=== PATIENT | female | born 1990 | race Caucasian/White ===

== ENCOUNTER 2017-11-04 15:01 | Emergency (ER) | payer MEDICAID ==
[~2017-11-04] VITALS: Ht 154.9 cm; Wt 89.8 kg
== END 2017-11-04 16:48 | disposition home or self-care (01) ==
LOC: ED 15:01
DX: F41.9 Anxiety disorder, unspecified (principal)
CPT/HCPCS: 80053; 81001; 83690; 84703; 85025; 96374; 99283; J2405

== ENCOUNTER 2024-11-06 12:29 | Emergency (ER) | payer OTHER ==
[~2024-11-06] VITALS: Ht 154.9 cm; Wt 92.1 kg
[2024-11-06 12:54] LABS: BLOOD/HGB, URINE MODERATE (Negative); KETONE, URINE NEGATIVE (Negative); LEUK ESTERASE, URINE NEGATIVE (negative); NITRITE, URINE NEGATIVE (negative)
[2024-11-06 13:01] LABS: BACTERIA, URINE RARE /hpf (negative); CASTS, URINE NONE SEEN \\lpf; CRYSTALS, URINE NONE SEEN (0-1+); EPITHELIAL CELLS, URINE SQUAMOUS 1+ /lpf (0-1+); REFLEX CULTURE, URINE No (No)
[2024-11-06 13:15] LABS: BASOPHILS 0.4 % (0.1-1.2); EOSINOPHILS 2.3 % (0.7-5.8); LYMPHOCYTES 30.0 % (19.3-51.7); MCH 27.7 PG (25.6-32.2); MCHC 33.6 g/dL (32.2-35.5); MCV 82.5 fL (79.4-94.8); MONOCYTES 6.1 % (4.7-12.5); NEUTROPHILS 60.9 % (34.0-71.1); RBC 4.80 M/uL (3.93-5.22)
[2024-11-06] MEDS ORDERED: KETOROLAC TROMETHAMINE 15 MG/ML VIAL IV ONE (13:15)
[2024-11-06 13:32] LABS: ALT (SGPT) 60.0 U/L (14-59); AST (SGOT) 26.0 U/L (15-37); GLOMERULAR FILTRATION RATE,EST 108.0 mL/min (>60); PROTEIN, TOTAL 7.1 g/dL (6.4-8.2); UREA NITROGEN 8.0 mg/dL (7-18)
[2024-11-06] MEDS ORDERED: HYDROCODON-ACE1 EA10 PO (13:57)
[2024-11-06] MEDS ORDERED: DICYCLOMINE HCL20 MG PO (13:57)
[2024-11-06] MEDS ORDERED: ONDANSETRON ODT8 MG PO (13:57)
[2024-11-06 14:15] VITALS: BP 111/92
== END 2024-11-06 14:12 | disposition home or self-care (01) ==
LOC: ED 12:29
PROVIDERS: Emergency Medicine
DX: K80.70 Calculus of gallbladder and bile duct without cholecystitis without obstruction (principal)
CPT/HCPCS: 36415; 76705; 80053; 81001; 83690; 84703; 85025; 96374; 99284-25; J1885

== ENCOUNTER 2024-12-12 16:46 | Emergency (ER) | payer OTHER ==
[~2024-12-12] VITALS: Ht 154.9 cm; Wt 91.6 kg
[~2024-12-12 16:46] MED LIST: DICYCLOMINE HCL20 MG PO; HYDROCODON-ACE1 EA10 PO; ONDANSETRON ODT8 MG PO
[2024-12-12 17:13] LABS: BASOPHILS 0.4 % (0.1-1.2); EOSINOPHILS 2.1 % (0.7-5.8); LYMPHOCYTES 34.5 % (19.3-51.7); MCH 27.7 PG (25.6-32.2); MCHC 33.5 g/dL (32.2-35.5); MCV 82.7 fL (79.4-94.8); MONOCYTES 5.5 % (4.7-12.5); NEUTROPHILS 57.3 % (34.0-71.1); RBC 5.09 M/uL (3.93-5.22)
[2024-12-12 17:14] LABS: BLOOD/HGB, URINE NEGATIVE (Negative); KETONE, URINE TRACE (Negative); LEUK ESTERASE, URINE TRACE (negative); NITRITE, URINE NEGATIVE (negative)
[2024-12-12 17:23] LABS: EPITHELIAL CELLS, URINE SQUAMOUS 4+ /lpf (0-1+)
[2024-12-12 17:24] LABS: BACTERIA, URINE NONE SEEN /hpf (negative); CASTS, URINE NONE SEEN \\lpf; CRYSTALS, URINE NONE SEEN (0-1+); REFLEX CULTURE, URINE No (No)
[2024-12-12 17:29] LABS: ALT (SGPT) 30.0 U/L (14-59); AST (SGOT) 15.0 U/L (15-37); GLOMERULAR FILTRATION RATE,EST 111.0 mL/min (>60); PROTEIN, TOTAL 7.4 g/dL (6.4-8.2); UREA NITROGEN 14.0 mg/dL (7-18)
[2024-12-12] MEDS ORDERED: MACROBID 100 M100 MG PO (18:54)
[2024-12-12 19:04] VITALS: BP 127/64
== END 2024-12-12 19:04 | disposition home or self-care (01) ==
LOC: ED 16:46
PROVIDERS: Emergency Medicine
DX: N39.0 Urinary tract infection, site not specified (principal); K80.20 Calculus of gallbladder without cholecystitis without obstruction
CPT/HCPCS: 36415; 74177; 76705; 80053; 81001; 83690; 84703; 85025; 99284-25; Q9967

== ENCOUNTER 2025-01-10 08:46 | Day surgery (SDC) | payer OTHER ==
[~2025-01-10] VITALS: Ht 157.5 cm; Wt 92.0 kg
[~2025-01-10 08:46] MED LIST changes: +CEFAZOLIN SODIUM 2 GM in SODIUM CHLORIDE 0.9% 100 ML IV SCH; +HEParin SOD (PORCINE) 5,000 UNIT/ML SDV SUB-Q SCH; +IBLOOD GLUCOSE TEST STRIP 1 EA TEST VI PRN; +LACTATED RINGER'S 1,000 ML IV SCH; +LIDOCAINE HCL 1% 5 ML SDV INJ ONE; +MACROBID 100 M100 MG PO
[2025-01-10 09:24] VITALS: BP 119/62
[2025-01-10] MEDS ORDERED: fentaNYL citrate 100 MCG/2 ML VIAL ONE (12:46)
[2025-01-10] MEDS ORDERED: BUPIVACAINE HCL 0.5% 30 ML VIAL ONE (12:59)
[2025-01-10] MEDS ORDERED: SODIUM CHLORIDE 0.9% 40 ML IV ONE (13:00)
[2025-01-10] MEDS ORDERED: LIDOCAINE HCL 1% 30 ML SDV ONE (13:00)
[2025-01-10] MEDS ORDERED: MAGNESIUM SULFATE 1 GM/2 ML VIAL ONE (13:22)
[2025-01-10] MEDS ORDERED: DEXAMETHASONE SOD PHOS 4 MG/ML VIAL ONE (13:27)
[2025-01-10] MEDS ORDERED: KETOROLAC TROMETHAMINE 30 MG/ML VIAL ONE (13:27)
[2025-01-10] MEDS ORDERED: HYDROmorphone HCL 1 MG/ML SYR IV PRN (13:30)
[2025-01-10] MEDS ORDERED: IBLOOD GLUCOSE TEST STRIP 1 EA TEST VI PRN (13:30)
[2025-01-10] MEDS ORDERED: NALOXONE HCL 0.4 MG SYR IV PRN (13:30)
[2025-01-10] MEDS ORDERED: fentaNYL citrate 50 MCG/ML SDV IV PRN (13:30)
[2025-01-10] MEDS ORDERED: SEVOFLURANE 250 ML BTL INH ONE (13:47)
[2025-01-10] MEDS ORDERED: ROCURONIUM BROMIDE 50 MG/5 ML SYR ONE (13:50)
[2025-01-10] MEDS ORDERED: ACETAMINOPHEN 1,000 MG/100 ML VIAL ONE (14:08)
[2025-01-10] MEDS ORDERED: SUGAMMADEX SODIUM 200 MG/2 ML ML ONE (14:27)
--- NOTE | 2025-01-10 15:29 | NUR ---
01/10/25 1529 Shante Mixon 1503 PT ARRIVED IN PACU NON RESPONSIVE TO NOXIOUS STIMULI WITH OPA IN PLACE. 1504 PT REACTIVE. OPA REMOVED. 1515 SNORING. REU. 1528 RESTING. REU.
[2025-01-10 16:10] VITALS: BP 115/69
--- NOTE | 2025-01-10 16:49 | NUR ---
1613: PATIENT BACK IN DAY SURGERY ROOM FROM PACU. UNABLE TO RATE PAIN. BUT STATES "IT HURTS." DECLINES ORAL PAIN MEDS AT THIS TIME. VS CHECKED. ABDOMINAL SITES WNL. IV SITE WNL. SCDs ON. ICE WATER AND APPLESAUCE PLACED AT BEDSIDE. PATIENT STATES SHE FEELS WARM. COOL WASHCLOTH ON FOREHEARD AND COOL AIR BLOWING ON PATIENT. AT BEDSIDE. CALL LIGHT WITHIN REACH. 1645: CHECKED PATIENT. PATIENT MORE ALERT, BUT STATES SHE FEELS TIRED. NO NEEDS AT THIS TIME. CALL LIGHT WITHIN REACH. AT BEDSIDE.
[2025-01-10 17:15] VITALS: BP 117/72
--- NOTE | 2025-01-10 17:45 | NUR ---
1715-INTO PTS ROOM FOR ROUTINE REASSESSMENT. VS TAKEN. IV SITE ASSESSED, SL'D. PT DENIES NAUSEA WHEN ASKED AND REPORTS PAIN 3/10. PT REPORTS THIS TO BE A TOLERABLE LEVEL OF PAIN FOR HER. SURGICAL SITES VISUALIZED AND NO BLEEDING OR DRAINAGE NOTED. AT BEDSIDE. 1735-PT UP TO RESTROOM WITH RN ASSIST. PT ABLE TO VOID APPROX 200 ML OF CLR, YELLOW URINE. PT ASSITED BACK TO ROOM AND AND PERSONAL BELONGINGS AT BEDSIDE. SPOUSE ASSITING PT WITH DRESSING 1740-INTO PTS ROOM FOR DC EDUCATION. PT PROVIDED WITH VERBAL AND WRITTEN DC EDUCATION. SPOUSE AND PT VERBALIZE UNDERSTANDING. ALL QUESTIONS ANSWERED. 1745-SPOUSE LEFT TO PULL CAR AROUND TO FRONT. IV REMOVED. TIP APPEARS INTACT. PRESSURE DRSG APPLIED WITH GAUZE AND COBAN. ICE WATER AND ICE PACK REFILLED FOR RIDE HOME. PT HAS HARD COPY RX TO TAKE TO PHARMACY. PT AWARE SURGICAL OFFICE WILL CALL HER TOMORROW TO SCHEDULE 2 WEEK POST OP F/U APPT.
--- NOTE | 2025-01-10 17:50 | NUR ---
PT DISCHARGED FROM DS VIA WC TO PASSENGER SIDE OF SPOUSES VEHICLE. ALL PERSONAL BELONGINGS TAKEN WITH PT.
--- NOTE | 2025-01-14 09:31 | PATH ---
[facility] [address] [place], [place] [address] Signed SPECIMEN(S): A GALLBLADDER AND STONES SPECIMEN SOURCE: A. GALLBLADDER AND STONES CLINICAL HISTORY: Chronic cholecystitis. Cholecystitis FINAL PATHOLOGIC DIAGNOSIS: Gallbladder and stones: - Chronic calculous cholecystitis. - Mucosal cholesterolosis. JVR MICROSCOPIC EXAMINATION: Histologic sections of all submitted blocks are examined by light microscopy. These findings, together with the gross examination, support the pathologic diagnosis. GROSS DESCRIPTION: The specimen, labeled and designated "John Wilson, gallbladder and stones," is received in formalin and consists of Specimen: Surgically disrupted gallbladder. Dimensions: 8.4 x 3.2 x 1.6 cm. Serosa: Blue-green and smooth. Cystic Duct: Unobstructed, inked. Calculi: Present�yellow and botryoid. Mucosa: Green and velvety with yellow flecking. Wall thickness: 0.2 to 0.3 cm. Lymph node: No pericystic lymph nodes are grossly identified. Additional: None. Vulcan Crewmember sections are submitted in (A1). AA (under the direct supervision of a pathologist) The Gross Description was prepared using a voice recognition system. The report was reviewed for accuracy; however, sound-alike word errors, addition and/or deletions may occur. If there is any question about this report, please contact Client Services. ADDITIONAL NOTES: Immunohistochemical and/or in situ hybridization studies if performed in this case included appropriate positive controls that reacted as expected. This PATIENT NAME: DAMIAN WILSON PATHOLOGY DATE OF : [birth year] REPORT #: [id number] PHYSICIAN: JOSE FULLER PCP: DANIELLE GIFFORD PA-C REPORT IS CONFIDENTIAL AND NOT TO BE RELEASED WITHOUT AUTHORIZATION [facility] [address] [facility] [place], [place] [address] Signed test was developed and its performance characteristics determined by [facility]. It has not been cleared or approved by the U.S. Food and Drug Administration. The FDA has determined that such clearance or approval is not necessary. This test is used for clinical purposes. It should not be regarded as investigational or for research. [facility] is certified under the Clinical Laboratory Improvement Amendments of 1988 (CLIA) as qualified to perform high complexity clinical laboratory testing. PERFORMING LABORATORY: Technical component was performed by [facility], [address] [place] [id number] (CLIA# [id number]). Professional interpretation was performed by [facility] - [place] [facility] - [address] [place] [place] [address] (CLIA#: [id number]). Diagnostician: Severino Hathaway MD Pathologist Electronically Signed 01/14/2025 Copies: ~ PATIENT NAME: DAMIAN WILSON PATHOLOGY DATE OF : [birth year] REPORT #: [id number] PHYSICIAN: JOSE PATHOLOGY PCP: DANIELLE GIFFORD PA-C REPORT IS CONFIDENTIAL AND NOT TO BE RELEASED WITHOUT AUTHORIZATION
== END 2025-01-10 17:50 | disposition home or self-care (01) ==
LOC: DS 08:46
PROVIDERS: ATTEND Surgery
PROC: BF50200 Other Imaging of Bile Ducts using Fluorescing Agent, Indocyanine Green Dye, Intraoperative (ICD-10-PCS; 2025-01-10)
PROC: 0FT44ZZ Resection of Gallbladder, Percutaneous Endoscopic Approach (ICD-10-PCS; principal; 2025-01-10 10:15)
DX: K80.10 Calculus of gallbladder with chronic cholecystitis without obstruction (principal)
CPT/HCPCS: 00790; 88304; J0131; J0688; J1100; J1644; J1885; J2405; J2704; J3010; J3475; J3490; J7121